=== PATIENT | female | born 2000 | race Caucasian/White ===

== ENCOUNTER 2019-10-27 13:11 | Emergency (ER) | payer OTHER ==
[~2019-10-27] VITALS: Ht 160 cm; Wt 59.0 kg
[2019-10-27 17:31] VITALS: BP 110/70
== END 2019-10-27 17:35 | disposition home or self-care (01) ==
LOC: ER 13:11
DX: S69.92XA Unspecified injury of left wrist, hand and finger(s), initial encounter (principal); W23.0XXA Caught, crushed, jammed, or pinched between moving objects, initial encounter; Y93.89 Activity, other specified; Y92.89 Other specified places as the place of occurrence of the external cause; Y99.8 Other external cause status
CPT/HCPCS: 29130

== ENCOUNTER 2022-10-25 19:47 | Emergency (ER) | payer OTHER, MEDICAID ==
[~2022-10-25] VITALS: Ht 160 cm; Wt 65.0 kg
[2022-10-25] MEDS ORDERED: ONDANSETRON HCL 4 MG/2 ML VIAL IV ONE (21:30)
[2022-10-25] MEDS ORDERED: SODIUM CHLORIDE 0.9% 1,000 ML IV ONE (21:30)
[2022-10-25] MEDS ORDERED: HYDROmorphone HCL 2 MG/ML VL/or syr IV ONE (22:00)
[2022-10-25 23:28] LABS: Basophils # (auto) 0 10 ^3/uL (0-0.2); Basophils % (auto) 0.2 % (0.0-2.0); Eosinophils # (auto) 0 10 ^3/uL (0-0.8); Hematocrit 42.9 % (36.0-46.0); Hemoglobin 14.1 g/dL (12.2-16.2); Lymphocytes # (auto) 0.5 10 ^3/uL (0.4-5.4); Lymphocytes % (auto) 2.2 % (10.0-50.0); Mean Corpuscular Hemoglobin 30.2 pg (28.0-32.0); Mean Corpuscular Hgb Conc. 32.9 g/dL (32.0-36.0); Mean Corpuscular Volume 91.7 fL (80.0-100.0); Monocytes # (auto) 1.4 10 ^3/uL (0-1.3); Monocytes % (auto) 6.1 % (0.0-12.0); Neutrophils # (auto) 20.5 10 ^3/uL (1.6-8.6); Neutrophils % (auto) 91.5 % (37.0-80.0); Red Blood Cells 4.68 10^6/uL (4.0-5.20); Red Cell Distribution Width 12.3 % (11.8-14.3); White Blood Cell 22.3 10^3/uL (4.4-10.8)
[2022-10-26 00:06] LABS: Urine Blood Trace /uL (Negative); Urine Specific Gravity 1.013 (1.001-1.035)
[2022-10-26 00:26] LABS: Albumin 4.1 g/dL (3.4-5.0); BUN/Creatinine Ratio 13.9; Bilirubin, Total 1.8 mg/dL (0.2-1.0); Calcium 9.1 mg/dL (8.5-10.1); Total Protein 7.5 g/dL (6.4-8.2)
[2022-10-26 01:15] VITALS: BP 124/67
[2022-10-26] MEDS ORDERED: cefTRIAXone 1GM/50ML D5W 50 ML IV ONE (01:15)
[2022-10-26] MEDS ORDERED: NITR-87 PO (01:16)
[2022-10-26] MEDS ORDERED: ONDA-144 PO (01:16)
== END 2022-10-26 03:14 | disposition home or self-care (01) ==
LOC: ER 19:48
DX: K29.70 Gastritis, unspecified, without bleeding (principal); F12.10 Cannabis abuse, uncomplicated; N39.0 Urinary tract infection, site not specified; K08.409 Partial loss of teeth, unspecified cause, unspecified class; Z20.822 Contact with and (suspected) exposure to COVID-19
CPT/HCPCS: 36415; 71045; 74176; 80053; 81003; 83690; 85025; 87426; 87804; 96361; 96365; 96375; 99285; J0696; J1170; J2405; J7030